=== PATIENT | male | born 1950 | race Asian ===

== ENCOUNTER → 2024-04-01 | Outpatient (CLI) | payer OTHER, SELFPAY ==
--- NOTE | 2024-04-01 08:44 | XR_ITS ---
Examination: Knee bilateral, 6 views Technique: Knee AP, lateral, oblique each knee total 6 views Date and time of exam: Bilateral knee pain for months, no trauma FINDINGS: Moderate osteopenia Moderate narrowing medial joint space right knee. Advanced narrowing medial joint space left knee No fracture or dislocation involving either knee Moderate osteoarthritis left patellofemoral joint IMPRESSION: Moderate narrowing medial joint space right knee Advanced narrowing medial joint space left knee Moderate osteoarthritis lateral patellofemoral joint
== END | disposition home or self-care (01) ==
PROVIDERS: PCP Internal Medicine; Referring Provider Internal Medicine; Visit Provider Internal Medicine
DX: M17.0 Bilateral primary osteoarthritis of knee (principal); M25.862 Other specified joint disorders, left knee; M25.861 Other specified joint disorders, right knee
CPT/HCPCS: 73562

== ENCOUNTER → 2024-05-09 | Outpatient (CLI) | payer OTHER, SELFPAY ==
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
== END | disposition home or self-care (01) ==
LOC: CDIM 14:58
PROVIDERS: PCP Internal Medicine; Referring Provider Internal Medicine; Visit Provider Internal Medicine
DX: M25.511 Pain in right shoulder (principal); M50.321 Other cervical disc degeneration at C4-C5 level
CPT/HCPCS: 72050; 73030

== ENCOUNTER 2024-07-30 13:07 | Outpatient (AMB) | payer OTHER, SELFPAY ==
--- NOTE | 2024-07-30 13:20 | ORTHONT_ITS ---
Vital signs 07/30/24 13:21 Height 1.6 m Height Method Measured Weight 70.562 kg Weight Measurement Method Standing Scale BMI 27.5 BP 132/77 H Blood Pressure Source Automatic Cuff Blood Pressure Location Right Upper Arm Position Sitting Respiration 18 Pulse 61 Pulse Source Monitor Temp 98.4 F Temp Source Temporal Artery Scan Pulse Oximetry (%) 97 Oxygen Delivery Method Room Air Med/Allergies Allergies & Medications Allergies NKA* Allergy (Uncoded 07/30/24 13:23) Medication Reconciliation allopurinol 300 mg tablet 300 mg PO QDAY 07/30/24 [History Confirmed 07/30/24] apixaban 5 mg tablet (Eliquis) 5 mg PO BID 07/30/24 [History Confirmed 07/30/24] furosemide 20 mg tablet 20 mg PO QDAY 07/30/24 [History Confirmed 07/30/24] metoclopramide HCl 5 mg tablet 5 mg PO QAC 07/30/24 [History Confirmed 07/30/24] montelukast 10 mg tablet 10 mg PO QDAY 07/30/24 [History Confirmed 07/30/24] pantoprazole 40 mg granules delayed-release for susp in packet 40 mg PO QDAY 07/30/24 [History Confirmed 07/30/24] potassium chloride 20 mEq tablet,extended release(part/cryst) 20 meq PO QDAY 07/30/24 [History Confirmed 07/30/24] tamsulosin 0.4 mg capsule 0.4 mg PO QDAY 07/30/24 [History Confirmed 07/30/24] valsartan 40 mg tablet 40 mg PO BID 07/30/24 [History Confirmed 07/30/24] Exam Exam Patient is in no acute distress and is cooperative with the examination today. Breathing is nonlabored. In no respiratory distress. Bilateral extremities were evaluated and demonstrates sensation intact to light touch. Palpable pedal pulses are present. No significant edema is present. Bilateral hips were examined. The patient has no pain with log roll of the hips. Internal rotation to 30 degrees and external rotation to 30 degrees is painless. Negative FADIR. The left knee was examined. The left knee is in varus alignment. Range of motion from 0-115 degrees. Knee is stable to varus and valgus as well as AP translation with <5mm. Patient has a negative McMurrays. There is no pain with patellofemoral compression and no crepitus noted. The knee is tender to palpation medially. The right knee was also examined. The right knee is in varus alignment. Range of motion from 0-120 degrees. Knee is stable to varus and valgus as well as AP translation with <5mm. Patient has a negative McMurrays. There is no pain with patellofemoral compression and no crepitus noted. The knee is tender to palpation medially. Nonweightbearing films demonstrate significant arthritis with complete joint space obliteration of the left knee and moderate joint space obliteration of the right Assessment and Plan Problem List (1) Degenerative arthritis of knee, bilateral: Status: Acute Plan: Patient is a pleasant 74-year-old male with bilateral knee pain and bilateral knee arthritis. We discussed different treatment options. He would like to try bilateral knee injections today which I think is reasonable. Recommend knee cortisone injections as patient would like to proceed with con servative treatment at this time. The risks and benefits of the procedure were reviewed with the patient and patient gave verbal consent to continue with the procedure. Procedure: performed by Dr. Monroe Using sterile technique the Bilateral knees were thoroughly prepped with alcohol, and approximately 1 cc of Kenalog 40 mg/mL and 4 cc of 1% lidocaine was injected into each knee without resistance into the medial tibial femoral joint space. The patient tolerated the procedure. Advanced Care Planning Discussion Advance care planning discussed with:: patient Office Procedures GNS Level of Care Nursing/Assessment Patient Status: Initial/New Patient Nursing Assessment/Reassesment: Medication Reconciliation and Update PMH in EMR Coordination of Care: Complex Care and Chronic Disease 1-5, Consent,records obtained, informed consent, Education Simp Pt/Fam, 1 Ins Authorization, Lab and Imaging orders, Results/Orders obtained and Staff clarify orders New Patient Charge New Patient Point Assignment: 1104 New Patient Point Charge: INPATIENT CODER Level 3 (4126-8137) Surgical Proc/IM SQ injection Major Surgical Procedure: Yes (BILATERAL KNEE INJECTION ) Medication Given Medication Given Medication Given: Yes Documented Dose Given: 8 Route: Infiitration Medication Given Medication Given Medication Given: Yes Documented Dose Given: 2 Route: Infiitration Office Meds Xylocaine 10 mg/mL (1 %) injection solution Performing Provider: Conner Monroe MD Performing Location: [facility] Administered by: Conner Monroe MD on 07/30/24 14:00 Dose Route Admin Location Dispensed Lot Number Expiration Date [facility] Urogynaecologist 20 mL Infiltration KNEE 20 mL [id number] 10/19/27 51324-838-71 [employer] triamcinolone acetonide 40 mg/mL suspension for injection Performing Provider: Conner Monroe MD Performing Location: [facility] Administered by: Conner Monroe MD on 07/30/24 14:00 Dose Route Admin Location Dispensed Lot Number Expiration Date [facility] Urogynaecologist 40 mg intra-articular KNEE 1 mL [id number] 12/18/25 3156-3977-21 TE [facility]ENTER[facility] MA Intake Visit Data Collection New Patient or Established: New Patient (never been to [facility]) Reason for Visit:: BILATERAL KNEE PAIN Seen by Clinical Staff ONLY (RN/MA): No Patient Educator Required: No PCP or OBGYN visit in last 3 months: Yes Hx Now: No Do You Feel Safe at Home: Yes Authorities Contacted: N/A Questionairres Past Medical History Past Medical History Have you ever been diagnosed with any of the following: Cardiology Problems Congestive Heart Failure: No Respiratory Problems Chronic Obstructive Pulmonary Disease (COPD): No Smoking: No Smoking Cessation Counseling: No Smoking Exposure: No Tobacco Use: No Genital/Urinary Problems Renal Disease: No Endocrine Problems Diabetes Mellitus Type 1: No Diabetes Mellitus Type 2: No Subjective Visit Visit for: new patient and knee (BILATERAL KNEE PAIN ) Immunization / Flu Flu Vaccine in the Last 12 Months: No Flu Vaccine Exclusion Criteria: Refused by Patient History of Present Illness Chief complaint: bl knee pain Levy is a pleasant 74-year-old male with severe arthritis of both knees. This been ongoing for quite a while. He has not had any injections. He would like to get bilateral knee injections today Personal History Red flag PMH: none Pain Pain level (0-10): 7 Pain duration: + 10 YEARS Pain location: anterior Pain quality: sharp Pain timing: night and increases with activity Associated signs & symptoms: none Ambulatory data Ambulatory device: none Walking distance (minutes): 5 Treatments Number of previous injections: 0 Number of Physical Therapy sessions: 0 Improvement with NSAIDS: n/a Review of Systems Review of Systems: All systems negative unless otherwise noted in HPI.
[2024-07-30 13:21] VITALS: BP 132/77; PULSE 61; RESP 18; TEMP 36.9; O2SAT 97; BMI 27.5
== END 2024-07-30 13:43 | disposition home or self-care (01) ==
LOC: HODSRG 13:07
PROVIDERS: PCP Internal Medicine; Referring Provider Internal Medicine; Supervising Provider Orthopaedic Surgery Adult Reconstructive Orthopaedic Surgery; Visit Provider Orthopaedic Surgery Adult Reconstructive Orthopaedic Surgery
DX: M17.0 Bilateral primary osteoarthritis of knee (principal)
CPT/HCPCS: 20610; 99203; J3301; J3490; G0463

== ENCOUNTER → 2024-10-04 | Outpatient (CLI) | payer OTHER, SELFPAY ==
--- NOTE | 2024-10-04 16:19 | XR_ITS ---
Examination: PA lateral chest 2 views TECHNIQUE: Upright PA and lateral chest 2 views Date and time: October 04, 2024 1622 hours Comparison December 06, 2021 INDICATIONS: Dyspnea coughing beginning 2 weeks ago. FINDINGS: Moderate enlargement cardiac contour Mild prominent central pulmonary vasculature. No lobar pneumonia No rené pulmonary edema IMPRESSION: Moderate enlargement cardiac contour Mild prominence central pulmonary vasculature
== END | disposition home or self-care (01) ==
PROVIDERS: PCP Internal Medicine; Referring Provider Internal Medicine; Visit Provider Internal Medicine
DX: I51.7 Cardiomegaly (principal); R91.8 Other nonspecific abnormal finding of lung field
CPT/HCPCS: 71046

== ENCOUNTER → 2024-10-07 | Outpatient (CLI) | payer OTHER, SELFPAY ==
[2024-10-07 16:18] LABS: Basophils # (Auto) 0.0 Thou/mm3 (0.0-0.2); Basophils % (Auto) 0 % (0-2.5); Eosinophils # (Auto) 0.1 Thou/mm3 (0.0-0.5); Eosinophils % (Auto) 2 % (0-10); Hematocrit 40.7 % (41.0-53.0); Hemoglobin 13.7 g/dL (13.5-16.0); Immature Granulocytes Auto 0.02 Thou/mm3 (0.00-0.00); Lymphocytes # (Auto) 0.8 Thou/mm3 (1.0-4.8); Lymphocytes % (Auto) 12 % (10-50); Mean Corpuscular HGB Conc 33.7 g/dl (31.0-37.0); Mean Corpuscular Hemoglobin 33.7 pg (25.0-35.0); Mean Corpuscular Volume 100 fL (80-100); Monocytes # (Auto) 0.5 Thou/mm3 (0.0-0.8); Monocytes % (Auto) 7 % (0-12); Neutrophils # (Auto) 5.5 Thou/mm3 (1.8-7.7); Neutrophils % (Auto) 79 % (37-80); Nucleated Red Blood Cell # 0.00 Thou/mm3 (0.00-0.00); Nucleated Red Blood Cell % 0 /100 WBC (0); Platelet Count 193 Thou/mm3 (140-440); RDW Standard Deviation 49.4 fL (35.1-43.9); Red Blood Count 4.06 Miln/mm3 (4.50-5.90); White Blood Count 7.0 Thou/mm3 (3.8-10.6)
[2024-10-07 16:25] LABS: Glucose Estimated Average 117 mg/dL (80-131); Hemoglobin A1C 5.7 % Hgb (4.8-6.0)
[2024-10-07 16:29] LABS: Alanine Aminotransferase 28 U/L (10-49); Albumin, Serum 3.9 gm/dL (3.4-4.8); Albumin/Globulin Ratio 1.6 (1.2-2.2); Alkaline Phosphatase 53 U/L (46-116); Anion Gap 11 (7-16); Aspartate Amino Transferase 30 U/L (0-34); BUN/Creatinine Ratio 19 Ratio (12-20); Bilirubin,Total 0.9 mg/dL (0.3-1.2); Blood Urea Nitrogen 17 mg/dL (9-23); Calcium 8.7 mg/dL (8.3-10.6); Calcium (Corrected) 8.8 mg/dL (8.5-10.1); Carbon Dioxide 25.5 mMol/L (20.0-31.0); Cardiac Risk Estimate 2.5 RATIO (4.0-6.7); Chloride 106 mMol/L (98-107); Cholesterol 151 mg/dL (132-200); Creatinine (Component) 0.9 mg/dL (0.6-1.3); Free T4 (Free Thyroxine) 1.44 ng/dL (0.89-1.76); Globulin 2.5 gm/dL (2.3-3.5); Glucose 106 mg/dL (74-106); HDL Cholesterol 60 mg/dL (40-60); LDL Cholesterol,Calculated 80 mg/dL (0-130); Osmolality,Calculated 284 (275-295); Potassium 3.4 mMol/L (3.4-5.1); Sodium 142 mMol/L (136-145); Thyroid Stimulating Hormone 1.24 uIU/mL (0.55-4.78); Total Protein 6.4 gm/dL (5.7-8.2); Triglycerides 54 mg/dL (30-150); Uric Acid 6.1 mg/dL (3.7-9.2); eGFR > 60 See Note
[2024-10-07 16:42] LABS: B-Type Natriuretic Peptide 156 pg/mL (0-100)
[2024-10-07 16:46] LABS: Vitamin D 25 Hydroxy Total 43.2 ng/mL (7.3-40.2)
== END | disposition home or self-care (01) ==
LOC: COPL 15:16
PROVIDERS: PCP Internal Medicine; Referring Provider Internal Medicine; Visit Provider Internal Medicine
DX: I11.0 Hypertensive heart disease with heart failure (principal); E55.9 Vitamin D deficiency, unspecified
CPT/HCPCS: 36415; 80053; 80061; 82306; 83036; 83880; 84439; 84443; 84550; 85025

== ENCOUNTER 2024-10-29 13:45 | Outpatient (AMB) | payer OTHER, SELFPAY ==
[2024-10-29 14:02] VITALS: BP 113/73; PULSE 66; RESP 18; TEMP 36.9; O2SAT 98; BMI 26.7
--- NOTE | 2024-10-29 14:02 | PD.ORTHCLVIS ---
Vital signs 10/29/24 14:02 Height 1.6 m Height Method Measured Weight 68.521 kg Weight Measurement Method Standing Scale BMI 26.7 BP 113/73 Blood Pressure Source Automatic Cuff Blood Pressure Location Left Upper Arm Position Sitting Respiration 18 Pulse 66 Pulse Source Monitor Temp 98.4 F Temp Source Temporal Artery Scan Pulse Oximetry (%) 98 Oxygen Delivery Method Room Air Med/Allergies Allergies & Medications Allergies NKA* Allergy (Uncoded 10/29/24 14:23) Medication Reconciliation allopurinol 300 mg tablet 300 mg PO QDAY 07/30/24 [History Confirmed 10/29/24] apixaban 5 mg tablet (Eliquis) 5 mg PO BID 07/30/24 [History Confirmed 10/29/24] furosemide 20 mg tablet 20 mg PO QDAY 07/30/24 [History Confirmed 10/29/24] metoclopramide HCl 5 mg tablet 5 mg PO QAC 07/30/24 [History Confirmed 10/29/24] montelukast 10 mg tablet 10 mg PO QDAY 07/30/24 [History Confirmed 10/29/24] pantoprazole 40 mg granules delayed-release for susp in packet 40 mg PO QDAY 07/30/24 [History Confirmed 10/29/24] potassium chloride 20 mEq tablet,extended release(part/cryst) 20 meq PO QDAY 07/30/24 [History Confirmed 10/29/24] tamsulosin 0.4 mg capsule 0.4 mg PO QDAY 07/30/24 [History Confirmed 10/29/24] valsartan 40 mg tablet 40 mg PO BID 07/30/24 [History Confirmed 10/29/24] Exam Exam Patient is in no acute distress and is cooperative with the examination today. Breathing is nonlabored. In no respiratory distress. Bilateral extremities were evaluated and demonstrates sensation intact to light touch. Palpable pedal pulses are present. No significant edema is present. Bilateral hips were examined. The patient has no pain with log roll of the hips. Internal rotation to 30 degrees and external rotation to 30 degrees is painless. Negative FADIR. The left knee was examined. The left knee is in varus alignment. Range of motion from 0-115 degrees. Knee is stable to varus and valgus as well as AP translation with <5mm. Patient has a negative McMurrays. There is no pain with patellofemoral compression and no crepitus noted. The knee is tender to palpation medially. The right knee was also examined. The right knee is in varus alignment. Range of motion from 0-120 degrees. Knee is stable to varus and valgus as well as AP translation with <5mm. Patient has a negative McMurrays. There is no pain with patellofemoral compression and no crepitus noted. The knee is tender to palpation medially. X-rays of the left knee demonstrate significant arthritis Assessment and Plan Problem List (1) Degenerative arthritis of knee, bilateral: Status: Acute Plan: Patient is a pleasant 74-year-old male with bilateral knee pain and bilateral knee arthritis. We discussed different treatment options. he would like to continue with conservative treatment. He reports he has minimal pain today and does not want any injection Advanced Care Planning Discussion Advance care planning discussed with:: patient Office Procedures GNS Level of Care Nursing/Assessment Patient Status: Established Patient Nursing Assessment/Reassesment: Medication Reconciliation, Update PMH in EMR and Vital Signs Coordination of Care: Complex Care and Chronic Disease 1-5, Education Complex Pt/Fam, Consent,records obtained, informed consent, Results/Orders obtained and Staff clarify orders Established Patient Charge Established Patient Point Assignment: 95 Established Patient Point Charge: EP Level 3 (80-115) MA Intake Visit Data Collection New Patient or Established: Established Patient (seen at [facility] within 3 years) Reason for Visit:: BILATERAL KNEE PAIN Seen by Clinical Staff ONLY (RN/MA): No Adaptive Physical Education Teacher Required: No PCP or OBGYN visit in last 3 months: Yes Hx Now: No Do You Feel Safe at Home: Yes Authorities Contacted: N/A Questionairres Past Medical History Past Medical History Have you ever been diagnosed with any of the following: Cardiology Problems Congestive Heart Failure: No Respiratory Problems Chronic Obstructive Pulmonary Disease (COPD): No Smoking: No Smoking Cessation Counseling: No Smoking Exposure: No Tobacco Use: No Genital/Urinary Problems Renal Disease: No Endocrine Problems Diabetes Mellitus Type 1: No Diabetes Mellitus Type 2: No Subjective Visit Visit for: follow up visit and knee (BILATERAL KNEE PAIN ) Immunization / Flu Flu Vaccine in the Last 12 Months: No Flu Vaccine Exclusion Criteria: Refused by Patient History of Present Illness Chief complaint: bl knee pain Levy is a pleasant 74-year-old male with severe arthritis of both knees. This been ongoing for quite a while. He reports that he is doing well from the injections previously. He does not want any injections and is happy with the pain relief currently Personal History Red flag PMH: none Pain Pain level (0-10): 0 Ambulatory data Ambulatory device: none Walking distance (minutes): 5 Treatments Number of previous injections: 0 Number of Physical Therapy sessions: 0 Improvement with NSAIDS: n/a Review of Systems Review of Systems: All systems negative unless otherwise noted in HPI.
== END 2024-10-29 14:29 | disposition home or self-care (01) ==
LOC: HODSRG 13:45
PROVIDERS: PCP Internal Medicine; Referring Provider Internal Medicine; Supervising Provider Orthopaedic Surgery Adult Reconstructive Orthopaedic Surgery; Visit Provider Orthopaedic Surgery Adult Reconstructive Orthopaedic Surgery
DX: M17.0 Bilateral primary osteoarthritis of knee (principal); M25.562 Pain in left knee; M25.561 Pain in right knee
CPT/HCPCS: 99213; G0463